=== PATIENT | female | born 1980 | race Caucasian/White ===

== ENCOUNTER 2017-01-23 09:43 | Emergency (ER) | payer MEDICAID ==
[~2017-01-23] VITALS: Ht 165.1 cm; Wt 65.0 kg
[2017-01-23 09:59] VITALS: Ht 165.1 cm; Wt 65.0 kg
[2017-01-23 11:20] LABS: BASOPHIL # 0.1 10^3/ul (0.0-0.1); BASOPHILS % 0.7 % (0.0-2.0); EOSINOPHILS # 0.3 10^3/ul (0.0-0.5); EOSINOPHILS % 4.2 % (0.0-7.0); HEMATOCRIT 36.7 % (37.0-47.0); HEMOGLOBIN 12.1 g/dl (12.0-16.0); LYMPHOCYTES # 1.9 10^3/ul (0.8-2.9); LYMPHOCYTES % 25.5 % (15.0-51.0); MEAN CORPUSCULAR HEMOGLOBIN 30.6 pg (29.0-33.0); MEAN CORPUSCULAR VOLUME 92.9 fl (82.0-101.0); MEAN PLATELET VOLUME 10.2 fl (7.4-10.4); MONOCYTE # 0.3 10^3/ul (0.3-0.9); MONOCYTES % 4.3 % (0.0-11.0); NEUTROPHILS % 65.2 % (39.0-77.0); PLATELET COUNT 308 10^3/UL (140-415); RED BLOOD COUNT 3.95 10^6/ul (4.20-5.40); RED CELL DISTRIBUTION WIDTH 12.1 % (11.5-14.5); WHITE BLOOD COUNT 7.6 10^3/ul (4.8-10.8)
[2017-01-23 11:31] LABS: ADD UMIC NO; UR ASCORBIC ACID NEGATIVE (NEGATIVE); UR BILIRUBIN (Dip) NEGATIVE (NEGATIVE); UR BLOOD (Dip) NEGATIVE (NEGATIVE); UR CLARITY CLEAR (CLEAR); UR COLOR YELLOW (YELLOW); UR GLUCOSE (Dip) NEGATIVE (NEGATIVE); UR KETONES (Dip) NEGATIVE (NEGATIVE); UR LEUKOCYTE ESTERASE (Dip) NEGATIVE Leu/ul (NEGATIVE); UR NITRITE (Dip) NEGATIVE (NEGATIVE); UR SPECIFIC GRAVITY (Dip) 1.009 (1.003-1.030); UR TOTAL PROTEIN (Dip) NEGATIVE (NEGATIVE); UR UROBILINOGEN (Dip) NEGATIVE (NEGATIVE)
[2017-01-23 11:39] LABS: ALANINE AMINOTRANSFERASE 50 IU/L (13-69); ALBUMIN 4.6 g/dl (3.3-4.9); ALBUMIN/GLOBULIN RATIO 1.27; ALKALINE PHOSPHATASE 94 IU/L (42-121); ANION GAP 15 (8-16); ASPARTATE AMINO TRANSFERASE 39 IU/L (15-46); BILIRUBIN,INDIRECT 0.2 mg/dl (0-1.1); BILIRUBIN,TOTAL 0.2 mg/dl (0.2-1.3); BLOOD UREA NITROGEN 12 mg/dl (7-20); CALCIUM 8.8 mg/dl (8.4-10.2); CARBON DIOXIDE 26 mmol/L (21-31); CHLORIDE 106 mmol/L (97-110); CREATININE 0.73 mg/dl (0.44-1.00); GLUCOSE 84 mg/dl (70-220); POTASSIUM 3.8 mmol/L (3.5-5.1); SODIUM 143 mmol/L (135-144); TOTAL PROTEIN 8.2 g/dl (6.1-8.1)
[2017-01-23 11:41] LABS: ACETAMINOPHEN < 10.0 ug/ml (10.0-30.0); ETHANOL < 10.0 mg/dl; SALICYLATE < 1.0 mg/dl (5.0-30.0)
[2017-01-23 11:47] LABS: BARBITURATES Negative (NEGATIVE); BENZODIAZEPINES Negative (NEGATIVE); CANNABINOIDS Negative (NEGATIVE); COCAINE Negative (NEGATIVE); OPIATES Negative (NEGATIVE)
[2017-01-23] MEDS ORDERED: AMI100 PO (12:47)
[2017-01-23] MEDS ORDERED: ATOR10TA65 PO (12:47)
[2017-01-23] MEDS ORDERED: CHOL100062 PO (12:48)
[2017-01-23] MEDS ORDERED: LEVO25TA59 PO (12:49)
[2017-01-23] MEDS ORDERED: LITH300T5 PO (12:49)
[2017-01-23] MEDS ORDERED: [UNRECOGNIZED DRUG - CODE] PO (12:50)
[2017-01-23] MEDS ORDERED: NAPR-688 PO (12:50)
--- NOTE | 2017-01-23 13:45 | ERD ---
ER Documentation Chief Complaint Chief Complaint BIBA FOR PSYCH ISSUES,SCREAMING ON THE STREET AND VERY CONFUSED HPI This is a 36 year old female with a history of schizophrenia who is presenting with psychosis, auditory and visual hallucinations. She was recently released from senior care and was staying at a facility where she completed intake the night before. The patient reportedly left the facility this morning and went out side a mu-ism to pray for all of her relatives that went inside. She reportedly has a history of episcopalian hallucinations and grandiose behaviors. The patient became agitated so an ambulance was called. Since arrival to the ER, the patient is no longer willing to talk and seems to be almost catatonic. ROS Limited 04/12 patient's mental state Medications Home Meds Reported Medications Naproxen* (Naproxen*) 500 Mg Tablet, 500 MG PO BID Y for PAIN, TAB 01/23/17 Perphenazine* (Trilafon*) 4 Mg Tab, 8 MG PO QHS, TAB 01/23/17 [place] Carbonate* ([place] Carbonate*) 300 Mg Tablet, 300 MG PO QHS, TAB 01/23/17 Levothyroxine Sodium* (Synthroid*) 25 Mcg Tablet, 25 MCG PO BEFORE BREAKFAST, # 30 TAB 01/23/17 Cholecalciferol* (Vitamin D3*) 1,000 Unit Tablet, 1000 UNIT PO DAILY, TAB 01/23/17 Atorvastatin Calcium (Atorvastatin Calcium) 10 Mg Tablet, 10 MG PO QHS, #30 TAB 01/23/17 Amitriptyline Hcl* (Elavil*) 100 Mg Tab, 150 MG PO HS, #30 TAB 01/23/17 Allergies Allergies: Coded Allergies: No Known Allergy (Unverified , 01/23/17) PMhx/Soc Limited 04/12 patient's mental state Hx Psychiatric Problems: Yes (SCHIZO) Smoking Status: Unknown if ever smoked FmHx Limited 04/12 patient's mental state Physical Exam Vitals Vital Signs Date Time Temp Pulse Resp B/P Pulse Ox O2 Delivery O2 Flow Rate FiO2 01/23/17 19:50 98.1 85 19 120/81 98 Room Air 01/23/17 17:55 98.1 74 18 112/72 98 Room Air 01/23/17 16:13 98.7 91 18 118/77 98 Room Air 01/23/17 09:59 98.7 88 18 136/72 98 Physical Exam Const: No apparent distress, well-developed, well-nourished Head: Normocephalic, Atraumatic Eyes: Normal Conjunctiva. Pupils equal, round and reactive to light ENT: Normal External Ears, Nose and Mouth. Neck: Full range of motion. No meningismus. Resp: Clear to auscultation bilaterally, No wheezes, rales or rhonchi Cardio: Regular rate and rhythm. No murmurs, rubs or gallops Abd: Soft, non tender, non distended. Normal bowel sounds Skin: No petechiae or rashes Back: No midline tenderness. No CVA tenderness Ext: No cyanosis, or edema Neur: Awake. No obvious focal deficits. No facial droop. Moves all extremities to pain Psych: Uncooperative, will not respond to questions. Result Diagram: 01/23/17 1112 01/23/17 1112 Results 24 hrs Laboratory Tests Test 01/23/17 09:54 01/23/17 11:05 01/23/17 11:12 Urine Color YELLOW Urine Clarity CLEAR Urine pH 6.0 Urine Specific [place] 1.009 Urine Ketones NEGATIVEmg/dL Urine Nitrite NEGATIVEmg/dL Urine Bilirubin NEGATIVEmg/dL Urine Urobilinogen NEGATIVEmg/dL Urine Leukocyte Esterase NEGATIVELeu/ul Urine Hemoglobin NEGATIVEmg/dL Urine Glucose NEGATIVEmg/dL Urine Total Protein NEGATIVEmg/dl Urine Opiates Screen Negative Urine Barbiturates Negative Urine Amphetamines Screen Negative Urine Benzodiazepines Screen Negative Urine Cocaine Screen Negative Urine Cannabinoids Negative White Blood Count 7.610^3/ul Red Blood Count 3.9510^6/ul Hemoglobin 12.1g/dl Hematocrit 36.7% Mean Corpuscular Volume 92.9fl Mean Corpuscular Hemoglobin 30.6pg Mean Corpuscular Hemoglobin Concent 33.0g/dl Red Cell Distribution Width 12.1% Platelet Count 44643^3/UL Mean Platelet Volume 10.2fl Neutrophils % 65.2% Lymphocytes % 25.5% Monocytes % 4.3% Eosinophils % 4.2% Basophils % 0.7% Nucleated Red Blood Cells % 0.0/100WBC Neutrophils # 5.010^3/ul Lymphocytes # 1.910^3/ul Monocytes # 0.310^3/ul Eosinophils # 0.310^3/ul Basophils # 0.110^3/ul Nucleated Red Blood Cells # 0.010^3/ul Sodium Level 143mmol/L Potassium Level 3.8mmol/L Chloride Level 106mmol/L Carbon Dioxide Level 26mmol/L Anion Gap 15 Blood Urea Nitrogen 12mg/dl Creatinine 0.73mg/dl Glucose Level 84mg/dl Calcium Level 8.8mg/dl Total Bilirubin 0.2mg/dl Direct Bilirubin 0.00mg/dl Indirect Bilirubin 0.2mg/dl Aspartate Amino Transf (AST/SGOT) 39IU/L Alanine Aminotransferase (ALT/SGPT) 50IU/L Alkaline Phosphatase 94IU/L Total Protein 8.2g/dl Albumin 4.6g/dl Globulin 3.60g/dl Albumin/Globulin Ratio 1.27 Salicylates Level < 1.0mg/dl Acetaminophen Level < 10.0ug/ml Ethyl Alcohol Level < 10.0mg/dl Procedures/MDM MDM The patient's presentation warrants further investigation. LABS The patient's blood work was obtained and reviewed. The patient's CBC shows no leukocytosis and no left shift. The patient is afebrile and does not appear systemically ill. I do not suspect a systemic infection. The patient is not anemic today. The patient's platelet count is unremarkable. The patient's CMP shows no signs of metabolic or electrolyte emergencies. The patient has unremarkable renal and hepatic function testing. UA is negative for hematuria or infection. UDS negative. Tylenol, Salicylate and ethanol levels were negative as well. TREATMENT/DISPOSITION The patient was deemed medically stable for transfer. The psychiatric submarine operator at the facility where the patient had been staying came to the ER and deemed it necessary to place the patient on a 5150 hold. At time of sign out, the patient was pending acceptance to a psychiatric facility. The bed search has been initiated. Departure Diagnosis: Primary Impression: Psychosis Psychosis type: unspecified psychosis type Qualified Code: F29 - Psychosis, unspecified psychosis type Additional Impression: Hallucinations Condition: DARY Santos MD Jan 23, 2017 13:45
[2017-01-24] MEDS ORDERED: QUETIAPINE 25 MG TAB PO ONE (00:30)
--- NOTE | 2017-01-24 08:23 | PSY ---
Date/Time of Note Date/Time of Note DATE: 01/24/17 TIME: 08:18 Psychiatric Subjective Eval Consent Pt consented to telemedicine: Yes Subjective Evaluation Patient location: emergency Chief Complaint: BIBA FOR PSYCH ISSUES,SCREAMING ON THE STREET AND VERY CONFUSED History of present illness 36 yo single unemployed female with hx schizophrenia BIB EMS due to bizarre bhx ; apparently pt was released from [facility] into a drug treatment program. On the next morning she was sitting by the catholic responding to internal stimuli. This AM pt is calm, cooperative; she said she was given Seroquel last PM and is felling well, denies AH or Vh, jocelin SI or HI, denies paranoia. Past psychiatric history prior inpt Hospitalization: yes Family History denies Medical history Problems Medical Problems: (1) Hallucinations Status: Acute Allergies: Coded Allergies: No Known Allergy (Unverified , 01/23/17) Substance Abuse Substance abuse history: Yes Prior substance abuse treatmen: Yes Social History Marital status: single Level of education: 9th grade DPA/Conservatorship: No Occupation/Longterm: unemployed Psychiatric Objective Eval Physical Examination: Physical Examination: Not Applicable Mental Status Examination: Appearance: Groomed Eye Contact: Good Psychomotor Activity: Normal Behavior: Cooperative Speech: Clear AFFECT: Appropriate Mood: Appropriate/Full Though Process: Linear Thought Content: Normal Suicidal: No Homicidal: No On 72 hour hold: No Orientation: x4 Cognition: Alert Insight: Impared Judgement: Intact Laboratory Results Laboratory Tests Test 01/23/17 09:54 01/23/17 11:05 01/23/17 11:12 Urine Color YELLOW Urine Clarity CLEAR Urine pH 6.0 Urine Specific [place] 1.009 Urine Ketones NEGATIVEmg/dL Urine Nitrite NEGATIVEmg/dL Urine Bilirubin NEGATIVEmg/dL Urine Urobilinogen NEGATIVEmg/dL Urine Leukocyte Esterase NEGATIVELeu/ul Urine Hemoglobin NEGATIVEmg/dL Urine Glucose NEGATIVEmg/dL Urine Total Protein NEGATIVEmg/dl Urine Opiates Screen Negative Urine Barbiturates Negative Urine Amphetamines Screen Negative Urine Benzodiazepines Screen Negative Urine Cocaine Screen Negative Urine Cannabinoids Negative White Blood Count 7.610^3/ul Red Blood Count 3.9510^6/ul Hemoglobin 12.1g/dl Hematocrit 36.7% Mean Corpuscular Volume 92.9fl Mean Corpuscular Hemoglobin 30.6pg Mean Corpuscular Hemoglobin Concent 33.0g/dl Red Cell Distribution Width 12.1% Platelet Count 93862^3/UL Mean Platelet Volume 10.2fl Neutrophils % 65.2% Lymphocytes % 25.5% Monocytes % 4.3% Eosinophils % 4.2% Basophils % 0.7% Nucleated Red Blood Cells % 0.0/100WBC Neutrophils # 5.010^3/ul Lymphocytes # 1.910^3/ul Monocytes # 0.310^3/ul Eosinophils # 0.310^3/ul Basophils # 0.110^3/ul Nucleated Red Blood Cells # 0.010^3/ul Sodium Level 143mmol/L Potassium Level 3.8mmol/L Chloride Level 106mmol/L Carbon Dioxide Level 26mmol/L Anion Gap 15 Blood Urea Nitrogen 12mg/dl Creatinine 0.73mg/dl Glucose Level 84mg/dl Calcium Level 8.8mg/dl Total Bilirubin 0.2mg/dl Direct Bilirubin 0.00mg/dl Indirect Bilirubin 0.2mg/dl Aspartate Amino Transf (AST/SGOT) 39IU/L Alanine Aminotransferase (ALT/SGPT) 50IU/L Alkaline Phosphatase 94IU/L Total Protein 8.2g/dl Albumin 4.6g/dl Globulin 3.60g/dl Albumin/Globulin Ratio 1.27 Salicylates Level < 1.0mg/dl Acetaminophen Level < 10.0ug/ml Ethyl Alcohol Level < 10.0mg/dl Assessment and Plan Assessment/Diagnosis [place] I: Schizophrenia chronic paranoid [place] II: defered [place] III: NAD [place] IV: severe [place] V: gaf 45 Recommendation/Plan Medication Management rx Seroquel 300 mg poqhs; pt was advised to cotninue [place] and trilafon Psychotherapy outpt Pt. Caregiver/Family Education n/a Follow-up/Disposition pt can be released to her treatment program [id number] Recommendation: Release CHAYO Worthington MD Jan 24, 2017 08:23
[2017-01-24 10:22] VITALS: BP 126/78; PULSE 72; RESP 17; TEMP 98.2
== END 2017-01-24 10:24 | disposition home or self-care (01) ==
LOC: E/R 09:43
DX: F29 Unspecified psychosis not due to a substance or known physiological condition (principal); R40.2142 Coma scale, eyes open, spontaneous, at arrival to emergency department; R44.1 Visual hallucinations; R44.0 Auditory hallucinations; R40.2212 Coma scale, best verbal response, none, at arrival to emergency department; R40.2312 Coma scale, best motor response, none, at arrival to emergency department
CPT/HCPCS: 80053; 80306; 80307; 81003; 85025; Z7502; Z7610; 99283